=== PATIENT | female | born 1960 | race Caucasian/White ===

== ENCOUNTER 2017-07-04 16:07 | Emergency (ER) | payer BC ==
[~2017-07-04] VITALS: Ht 170.2 cm; Wt 84.4 kg
[~2017-07-04 16:07] MED LIST: PRLSR20 PO
[2017-07-04 16:12] VITALS: TEMP 36.7; Ht 170.2 cm; Wt 84.4 kg
--- NOTE | 2017-07-04 16:21 | EMERGENCY ROOM VISIT NOTE ---
History Report prepared by Portillo: Cindi Sheffield Under the Supervision of: Dr. Dta Hodge M.D. First contact with patient: 16:15 Chief Complaint: URINARY SYMPTOMS Stated Complaint: PELVIC PRESSURE AND PAIN AFTER URINATION Nursing Triage Summary: triage note; pt reports pelvic pain x 1 week. pt reports "i went to the dr yeseterday and thought i had a uti, i have the results on my phone." pt reports "i have lower abd pressure and when i pee i feel like i have to pee a lot." pt reports she was started on antibiotic yesterday. History of Present Illness The patient is a 56 year old female who presents to the Emergency Room with complaints of pelvic pain beginning 1 week ago. The patient reports going to the doctor yesterday and was given 3 days of antibiotics. Her results from her doctor's visit show trace esterase, but are otherwise normal. The patient states that it feels as if "her insides were going to fall out." She also states that she feel pressure in her pelvis and feels as if she needs to urinate a lot. The patient reports having a fever today, but denies back pain, chest pain, shortness of breath, coughing, vaginal bleeding, numbness, weakness, and edema of her legs. She states that her bowels have been normal and denies any recent trauma. 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 The patient reports having a stomach ulcer but no history of an appendectomy. Source of History: patient Onset: 1 week ago Position: other (pelvis) Quality: pressure Associated Symptoms: + fevers, No cough, No chest pain, No SOB, No back pain , No weakness, No numbness Review of Systems See HPI for pertinent positives & negatives. A total of 10 systems reviewed and were otherwise negative. Past Medical & Surgical Medical Problems: (1) Bronchitis (2) Pneumonia (3) Stomach ulcer Surgical Problems: (1) H/O: hysterectomy Old medical records were reviewed. Nurse's notes were reviewed and I agree with. Denies any chronic medical problems Family History Diabetes mellitus FH: diabetes mellitus FH: hypertension FH: kidney disease FHx: cancer Social History Smoking Status: Never Smoker Alcohol Use: none Drug Use: none Marital Status: Housing Status: lives with family Current/Historical Medications Scheduled Sulfa/Trimethoprim (Bactrim Ds 800MG/160MG), 1 TAB PO UD Scheduled PRN Omeprazole (Prilosec), 20 MG PO DAILY PRN Allergies Coded Allergies: No Known Allergies (Unverified , 07/04/17) Physical Exam Vital Signs Date Time Temp Pulse Resp B/P (MAP) Pulse Ox O2 Delivery O2 Flow Rate FiO2 07/04/17 18:40 84 16 138/88 97 07/04/17 16:12 36.7 86 18 138/58 99 Room Air Physical Exam General: Well developed well nourished middle-aged female in no acute distress, breathing comfortably on room air. Normal speech HEENT: Normal cephalic atraumatic. Pupils are equal round and reactive to light. Extraocular movements are intact. Oropharynx is pink with moist mucous membranes. No swelling of the mouth lips or tongue. Neck: Supple with a midline trachea. No meningeal signs or stiffness, no JVD or bruits. No Stridor. Chest: Clear to auscultation bilaterally. No wheezes or rhonchi. No increased work of breathing. Heart: regular rate and rhythm. Abdomen: Soft, nondistended without rebound guarding or rigidity. Mild tenderness to the lower abdomen and suprapubic region. Extremities: No cyanosis clubbing or edema. No calf tenderness or assymetry Spine/Back. Non tender to palpation. No CVA tenderness Skin: Good turgor without rashes. Neurologic exam: Cranial nerves two through 12 are intact. Motor and sensation are intact and symmetrical throughout. Medical Decision & Procedures ER Provider Diagnostic Interpretation: Radiology results as stated below per my review and radiologist interpretation: ABD/PELVIS WITHOUT FOR STONE CLINICAL HISTORY: 56 years-old Female presenting with eval for lower abd pressure. TECHNIQUE: Multidetector CT of the abdomen and pelvis was performed without the use of intravenous contrast. IV contrast: None. A dose lowering technique was used consistent with the principles of ALARA (as low as reasonably achievable). COMPARISON: None. CT DOSE (mGy.cm): The estimated cumulative dose is 1102.13 mGy.cm. FINDINGS: Sales Expert topogram: Unremarkable. Lung bases: Bandlike opacity at the left lung base likely atelectasis or scarring. Normal heart size. No pericardial or pleural effusion. Liver: Normal morphology. Normal density. Biliary: No biliary ductal dilatation allowing for noncontrast technique. Normal gallbladder. Pancreas: Normal. Spleen: Normal. Adrenal glands: Normal. Kidneys and ureters: Normal. No hydronephrosis. Bladder: Incompletely evaluated secondary to underdistention. Pelvic organs: Uterus surgically absent. No adnexal masses. Bowel: Inspissated debris in the small bowel could suggest delayed transit. No bowel obstruction. Peritoneal cavity: No free fluid or intraperitoneal gas. Vasculature: Normal noncontrast appearance. Lymph nodes: No enlarged lymph nodes in the abdomen or pelvis. Abdominal wall: Normal. Musculoskeletal: Degenerative changes of the spine. IMPRESSION: 1. No acute intra-abdominal pathology. 2. Inspissated debris in the small bowel could suggest delayed transit. No bowel obstruction. Electronically signed by: Josemanuel Garcia M.D. 07/04/2017 5:48 PM Dictated Date/Time: 07/04/2017 5:44 PM Laboratory Results 07/04/17 16:45 Red Blood Count 4.40, Mean Corpuscular Volume 89.3, Mean Corpuscular Hemoglobin 30.7, Mean Corpuscular Hemoglobin Concent 34.4, Mean Platelet Volume 9.4, Neutrophils (%) (Auto) 54.1, Lymphocytes (%) (Auto) 34.2, Monocytes (%) (Auto) 9.8, Eosinophils (%) (Auto) 1.7, Basophils (%) (Auto) 0.1, Neutrophils # (Auto) 3.71, Lymphocytes # (Auto) 2.35, Monocytes # (Auto) 0.67, Eosinophils # (Auto) 0.12, Basophils # (Auto) 0.01 07/04/17 16:45 Test 07/04/17 16:15 07/04/17 16:45 Urine Color YELLOW Urine Appearance CLEAR (CLEAR) Urine pH 6.5 (4.5-7.5) Urine Specific [place] 1.026 (1.000-1.030) Urine Protein NEG (NEG) Urine Glucose (UA) NEG (NEG) Urine Ketones NEG (NEG) Urine Occult Blood NEG (NEG) Urine Nitrite NEG (NEG) Urine Bilirubin NEG (NEG) Urine Urobilinogen NEG (NEG) Urine Leukocyte Esterase NEG (NEG) White Blood Count 6.87 K/uL (4.8-10.8) Red Blood Count 4.40 M/uL (4.2-5.4) Hemoglobin 13.5 g/dL (12.0-16.0) Hematocrit 39.3 % (37-47) Mean Corpuscular Volume 89.3 fL (80-100) Mean Corpuscular Hemoglobin 30.7 pg (25-34) Mean Corpuscular Hemoglobin Concent 34.4 g/dl (32-36) Platelet Count 210 K/uL (130-400) Mean Platelet Volume 9.4 fL (7.4-10.4) Neutrophils (%) (Auto) 54.1 % Lymphocytes (%) (Auto) 34.2 % Monocytes (%) (Auto) 9.8 % Eosinophils (%) (Auto) 1.7 % Basophils (%) (Auto) 0.1 % Neutrophils # (Auto) 3.71 K/uL (1.4-6.5) Lymphocytes # (Auto) 2.35 K/uL (1.2-3.4) Monocytes # (Auto) 0.67 K/uL (0.11-0.59) Eosinophils # (Auto) 0.12 K/uL (0-0.5) Basophils # (Auto) 0.01 K/uL (0-0.2) RDW Standard Deviation 42.9 fL (36.4-46.3) RDW Coefficient of Variation 13.1 % (11.5-14.5) Immature Granulocyte % (Auto) 0.1 % Immature Granulocyte # (Auto) 0.01 K/uL (0.00-0.02) Anion Gap 7.0 mmol/L (3-11) Est Creatinine Clear Calc Drug Dose 65.3 ml/min Estimated GFR () 65.9 Estimated GFR (Non- 56.9 BUN/Creatinine Ratio 17.5 (10-20) Calcium Level 8.9 mg/dl (8.5-10.1) Total Bilirubin 0.2 mg/dl (0.2-1) Direct Bilirubin < 0.1 mg/dl (0-0.2) Aspartate Amino Transf (AST/SGOT) 13 U/L (15-37) Alanine Aminotransferase (ALT/SGPT) 24 U/L (12-78) Alkaline Phosphatase 85 U/L (45-117) Total Protein 7.4 gm/dl (6.4-8.2) Albumin 3.9 gm/dl (3.4-5.0) Lipase 204 U/L (73-393) Laboratory studies as stated above per my review. Medications Administered Medications (Trade) Dose Ordered Sig/Lisa Route Start Time Stop Time Status Last Admin Dose Admin Sodium Chloride 1,000 ml @ 999 mls/hr Q1H1M STAT IV 07/04/17 16:32 07/04/17 17:32 DC 07/04/17 16:54 999 MLS/HR Sodium Chloride 1,000 ml @ 150 mls/hr Q6H40M ONCE IV 07/04/17 16:32 07/04/17 21:03 DC 07/04/17 17:48 150 MLS/HR ED Course 1617: Past medical records reviewed. The patient was evaluated in room A12, and a complete history and physical examination were performed. 1632: Ordered Sodium Chloride 1,000 ml @ 150 mls/hr IV, Sodium Chloride 1,000 ml @ 999 mls/hr IV. 1815: Upon reevaluation, the patient is resting comfortably. I discussed the results and treatment plan with her. She verbalized agreement of the treatment plan. The patient was discharged home. Medical Decision Differentials include, but are not limited to; UTI, kidney stones, appendicitis , and pelvic disease. This patient comes in as described above. She's had some pelvic fullness and some mild urinary symptoms for a couple days. She has no significant back pain. She has no numbness or weakness or change in bowel or bladder function to or anything to suggest a neurologic or cauda equina-type picture. IV access established and urinalysis was obtained does not suggest a UTI however she's had a couple doses of Bactrim. She has no white count or fever to suggest infection. She has no acute electrode or metabolic abnormality. She had a CAT scan of her abdomen and pelvis shows no obstructive uropathy or another acute intra-abdominal or pelvic processes. The patient has remained stable does feel up to going home. She will use ibuprofen for pain. I will have her continue the antibiotics for another 7 days, she had been only given 3 days. It be that this is bladder spasm or partially treated UTI. At this point there is no kidney stone or other pathology seen. I recommend she follow up with her regular doctor in the next couple days for recheck or return to ER if increasing pain, worsening symptoms, fever or chills, any new problems or concerns. She was happy with plan and discharged home Medication Reconcilliation Current Medication List: was personally reviewed by me Blood Pressure Screening Patient's blood pressure: Normal blood pressure Impression Primary Impression: Suprapubic pain Additional Impression: Urinary tract infection Scribe Attestation The scribe's documentation has been prepared under my direction and personally reviewed by me in its entirety. I confirm that the note above accurately reflects all work, treatment, procedures, and medical decision making performed by me. Departure Information Dispostion Home / Self-Care Referrals Yuly Rm D.O. (PCP) Forms HOME CARE DOCUMENTATION FORM, IMPORTANT VISIT INFORMATION Patient Instructions My [facility] [place] Additional Instructions Rest. Drink plenty of fluids. Continue Bactrim double strength twice a day. Return if: increasing pain, worsening of symptoms, fever or chills, any new problems or concerns Follow-up with your doctor Thursday for recheck Problem Qualifiers
[2017-07-04] MEDS ORDERED: SODIUM CHLORIDE 0.9% 1000ML 1,000 ML IV STA (16:32)
[2017-07-04] MEDS ORDERED: SODIUM CHLORIDE 0.9% 1000ML 1,000 ML IV ONE (16:32)
[2017-07-04 16:33] LABS: URINE APPEARANCE CLEAR (CLEAR); URINE BILIRUBIN NEG (NEG); URINE COLOR YELLOW; URINE NITRITE NEG (NEG); URINE PH 6.5 (4.5-7.5); URINE SPECIFIC GRAVITY 1.026 (1.000-1.030); UROBILINOGEN NEG (NEG); ZZUR CULT IF INDIC CLEAN CATCH NO
[2017-07-04 16:35] LABS: MANUAL MICROSCOPIC REQUIRED? NO; REVIEW REQ? NO
[2017-07-04] MEDS ORDERED: SULF800T23 PO (16:37)
[2017-07-04 17:05] LABS: BASO % 0.1 %; BASO ABS # 0.01 K/uL (0-0.2); COMPLETE YES; EOS % 1.7 %; HEMATOCRIT 39.3 % (37-47); IG% 0.1 %; LYMPH % 34.2 %; LYMPH ABS # 2.35 K/uL (1.2-3.4); MEAN CELL VOLUME 89.3 fL (80-100); MEAN CORPUSCULAR HEMOGLOBIN 30.7 pg (25-34); MEAN CORPUSCULAR HGB CONC 34.4 g/dl (32-36); MEAN PLATELET VOLUME 9.4 fL (7.4-10.4); MONO % 9.8 %; NEUT % 54.1 %; PLATELET COUNT 210 K/uL (130-400); WHITE BLOOD COUNT 6.87 K/uL (4.8-10.8)
[2017-07-04 17:24] LABS: BLOOD UREA NITROGEN 19 mg/dl (7-18); BUN/CREATININE RATIO 17.5 (10-20); CALCIUM 8.9 mg/dl (8.5-10.1); CARBON DIOXIDE 26 mmol/L (21-32); CHLORIDE 108 mmol/L (98-107); GLUCOSE 87 mg/dl (70-99); POTASSIUM 3.8 mmol/L (3.5-5.1); SODIUM 141 mmol/L (136-145)
[2017-07-04 17:28] LABS: ALKALINE PHOSPHATASE 85 U/L (45-117); ALT/SGPT 24 U/L (12-78); AST/SGOT 13 U/L (15-37)
--- NOTE | 2017-07-04 17:49 | DIAGNOSTIC IMAGING REPORT ---
ABD/PELVIS WITHOUT FOR STONE CLINICAL HISTORY: 56 years-old Female presenting with eval for lower abd pressure. TECHNIQUE: Multidetector CT of the abdomen and pelvis was performed without the use of intravenous contrast. IV contrast: None. A dose lowering technique was used consistent with the principles of ALARA (as low as reasonably achievable). COMPARISON: None. CT DOSE (mGy.cm): The estimated cumulative dose is 1102.13 mGy.cm. FINDINGS: Associate Professor Of Automation topogram: Unremarkable. Lung bases: Bandlike opacity at the left lung base likely atelectasis or scarring. Normal heart size. No pericardial or pleural effusion. Liver: Normal morphology. Normal density. Biliary: No biliary ductal dilatation allowing for noncontrast technique. Normal gallbladder. Pancreas: Normal. Spleen: Normal. Adrenal glands: Normal. Kidneys and ureters: Normal. No hydronephrosis. Bladder: Incompletely evaluated secondary to underdistention. Pelvic organs: Uterus surgically absent. No adnexal masses. Bowel: Inspissated debris in the small bowel could suggest delayed transit. No bowel obstruction. Peritoneal cavity: No free fluid or intraperitoneal gas. Vasculature: Normal noncontrast appearance. Lymph nodes: No enlarged lymph nodes in the abdomen or pelvis. Abdominal wall: Normal. Musculoskeletal: Degenerative changes of the spine. IMPRESSION: 1. No acute intra-abdominal pathology. 2. Inspissated debris in the small bowel could suggest delayed transit. No bowel obstruction. Electronically signed by: Josemanuel Garcia M.D. 07/04/2017 5:48 PM Dictated Date/Time: 07/04/2017 5:44 PM
[2017-07-04 18:40] VITALS: BP 138/88; PULSE 84; O2SAT 97
== END 2017-07-04 18:40 | disposition home or self-care (01) ==
LOC: C.EDB 16:09 → C.EDA 18:40
DX: R10.2 Pelvic and perineal pain (principal); N39.0 Urinary tract infection, site not specified; Z90.710 Acquired absence of both cervix and uterus; Z83.3 Family history of diabetes mellitus; Z82.49 Family history of ischemic heart disease and other diseases of the circulatory system

== ENCOUNTER 2020-11-10 20:05 | Inpatient (IN) ==
[2020-11-10 20:27] LABS: Basophils # (auto) 0.02 K/uL (0-0.2); Basophils % (auto) 0.3 %; Eosinophils % (auto) 1.3 %; Hematocrit (blood only) 39.3 % (37-47); Hemoglobin 13.4 g/dL (12.0-16.0); Immature Granulocytes # (auto) 0.01 K/uL (0.00-0.02); Immature Granulocytes % (auto) 0.1 %; Lymphocytes # (auto) 2.31 K/uL (1.2-3.4); Lymphocytes % (auto) 30.2 %; Mean Corpuscular Hemoglobin 30.8 pg (25-34); Mean Corpuscular Hgb Conc 34.1 g/dL (32-36); Mean Corpuscular Volume 90.3 fL (80-100); Mean Platelet Volume 9.6 fL (7.4-10.4); Monocytes # (auto) 0.53 K/uL (0.11-0.59); Monocytes % (auto) 6.9 %; Neutrophils # (auto) 4.68 K/uL (1.4-6.5); Neutrophils % (auto) 61.2 %; Platelet Count 204 K/uL (130-400); RDW Standard Deviation 43.1 fL (36.4-46.3); Red Blood Count 4.35 M/uL (4.2-5.4); White Blood Count 7.65 K/uL (4.8-10.8)
[2020-11-10] MEDS ORDERED: SODIUM CHLORIDE 0.9% 1000ML 1,000 ML IV ONE (20:30)
[2020-11-10] MEDS ORDERED: NITROGLYCERIN SL 0.4 MG/TAB TAB SL STA (20:30)
[2020-11-10] MEDS ORDERED: LORazepam 0.5 MG/1 ML VIAL IV STA (20:30)
[2020-11-10 20:37] LABS: Partial Thromboplastin Ratio 0.9; Partial Thromboplastin Time 25.4 Seconds (21.0-31.0); Prothrombin Time 10.2 Seconds (9.0-12.0)
[2020-11-10 20:42] LABS: BUN Creatinine Ratio 16.5 (10-20); Blood Urea Nitrogen 18 mg/dl (7-18); Calcium 9.1 mg/dl (8.5-10.1); Carbon Dioxide 25 mmol/L (21-32); Chloride 109 mmol/L (98-107); Creatinine Clr Calc Pharmacy 64.4 ml/min; Est GFR (African American) 63.4; Est GFR (Non-African American) 54.7; Glucose 116 mg/dl (70-99); Lipase 161 U/L (73-393); Potassium 3.9 mmol/L (3.5-5.1); Sodium 140 mmol/L (136-145)
[2020-11-10 20:46] LABS: Troponin I < 0.015 ng/ml (0-0.045)
--- NOTE | 2020-11-10 21:17 | XRay Report ---
TWO VIEW CHEST CLINICAL HISTORY: Atypical chest pain.. FINDINGS: PA and lateral chest radiographs are obtained. No prior studies are available for compariso n at the time of dictation. The cardiomediastinal silhouette is unremarkable. There is mild bibasila r atelectasis. The lungs and pleural spaces are otherwise clear. There is no pneumothorax. The skelet al structures are osteopenic. The bony thorax appears intact. IMPRESSION: No active disease in the chest. ACT 112: Negative or not required by law. Electronically signed by: Tommy Ma M.D. 11/10/2020 9:15 PM
--- NOTE | 2020-11-10 21:54 | History & Physical Report ---
Date of Service November 10, 2020 Assessment & Plan (1) Chest pain: ? Secondary to elevated BP Musculoskeletal component with chest wall tenderness on examination Rule out ACS given relief with nitroglycerin and patient risk factors. hyperlipidemia on statin Rx GERD, stable on home PPI Hyperglycemia rule out DM past tobacco abuse OBS PCU Initiate lisinopril if BP persistently elevated Aspirin for CAD prevention until ACS ruled out Trend cardiac markers TTE, Cardiology consult RE chest pain Check hemoglobin A1c DVT prophylaxis. Lovenox subcu Full code Text document was generated using [employer] voice recognition software. It may contain grammatical or spelling errors. Kindly contact undersigned for clarification of any documentation item in question. History of Present Illness Chief Complaint: Chest pain Primary Care Provider: Yuly Rm DO History obtained from patient and records. Medical history significant for hyperlipidemia, GERD. 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 No cough symptoms. Nonpleuritic. No prior episodes. No unusual stress at home or exertion. SBP noted to be 170s which according to patient is unusual for her. Chest discomfort relieved by aspirin and nitroglycerin administration by EMS. Achy headache symptoms post nitro administration. Patient currently comfortable at the ER. Medical History as above Surgical History : Partial hysterectomy, shoulder surgery Family History : Heart disease Personal/Social history : Non-smoker, occasional Et[employer] intake, [employer] Allergies Allergy/AdvReac Type Severity Reaction Status Date / Time No Known Allergies Allergy Unverified 11/10/20 20:22 Home Medications Medication Instructions Recorded Confirmed Type aspirin [Aspir-81] 162 mg PO .TODAY 11/10/20 11/10/20 History aspirin [Aspir-Low] 324 mg PO .TODAY 11/10/20 11/10/20 History atorvastatin [Lipitor] 20 mg PO DAILY 11/10/20 11/10/20 History omeprazole 40 mg PO DAILY 11/10/20 11/10/20 History Past Med/Surg History Medical History (Updated 11/11/20 @ 01:35 by Malik Wade) HLD (hyperlipidemia) Stomach ulcer Surgical History History of hysterectomy Family History (Updated 11/11/20 @ 01:32 by Malik Wade) Father Myocardial infarction Other Heart disease Social History Smoking Status: Never smoker Hx Alcohol Use: No Hx Substance Use: No Preferred Language: Iranian Change Consultant Required: No Beliefs That Will Affect Care: None Current Living Situation: Family Feels Safe at Home: Yes Assistive Devices: None Review of Systems Review of Systems: As per HPI, all 10 systems reviewed, all other ROS negative Physical Exam Physical Exam: GENERAL: Comfortable, pleasant, obese, slightly anxious, no respiratory distress SKIN: Normal color, warm HEENT: [place] palpebral conjunctivae, no ptosis, dry buccal mucosa NECK : Supple, short neck, no tenderness CHEST : CTA, anterior chest wall tenderness HEART : RRR, no obvious murmurs ABDOMEN: Some distention, nontender EXTREMITIES : No LE swelling/tenderness, no other conspicuous deformities noted NEUROLOGIC : Coherent, no facial asymmetry, no other gross focality Results & Data Results & Data ([facility]) Vital Signs (Past 12 Hours) Vital Signs Temp Pulse Resp BP Pulse Ox 11/10/20 21:30 89 22 125/97 97 11/10/20 21:00 92 H 17 150/85 H 94 11/10/20 20:58 90 17 158/86 H 95 11/10/20 20:30 94 H 15 164/125 H 96 11/10/20 20:15 97 11/10/20 20:09 36.6 C 100 H 18 182/103 H 97 Laboratory Results Laboratory Results WBC 7.65 K/uL (4.8-10.8) 11/10/20 20:13 RBC 4.35 M/uL (4.2-5.4) 11/10/20 20:13 Hgb 13.4 g/dL (12.0-16.0) 11/10/20 20:13 Hct 39.3 % (37-47) 11/10/20 20:13 MCV 90.3 fL (80-100) 11/10/20 20:13 MCH 30.8 pg (25-34) 11/10/20 20:13 MCHC 34.1 g/dL (32-36) 11/10/20 20:13 RDW Std Deviation 43.1 fL (36.4-46.3) 11/10/20 20:13 RDW Coeff of [place] 13.0 % (11.5-14.5) 11/10/20 20:13 Plt Count 204 K/uL (130-400) 11/10/20 20:13 MPV 9.6 fL (7.4-10.4) 11/10/20 20:13 Immature Gran % (Auto) 0.1 % 11/10/20 20:13 Neut % (Auto) 61.2 % 11/10/20 20:13 Lymph % (Auto) 30.2 % 11/10/20 20:13 [place] % (Auto) 6.9 % 11/10/20 20:13 Eos % (Auto) 1.3 % 11/10/20 20:13 Baso % (Auto) 0.3 % 11/10/20 20:13 Neut # (Auto) 4.68 K/uL (1.4-6.5) 11/10/20 20:13 Lymph # (Auto) 2.31 K/uL (1.2-3.4) 11/10/20 20:13 [place] # (Auto) 0.53 K/uL (0.11-0.59) 11/10/20 20:13 Eos # (Auto) 0.10 K/uL (0-0.5) 11/10/20 20:13 Baso # (Auto) 0.02 K/uL (0-0.2) 11/10/20 20:13 Immature Gran # (Auto) 0.01 K/uL (0.00-0.02) 11/10/20 20:13 PT 10.2 Seconds (9.0-12.0) 11/10/20 20:13 INR 1.0 (0.9-1.1) 11/10/20 20:13 APTT 25.4 Seconds (21.0-31.0) 11/10/20 20:13 PTT Ratio 0.9 11/10/20 20:13 Sodium 140 mmol/L (136-145) 11/10/20 20:13 Potassium 3.9 mmol/L (3.5-5.1) 11/10/20 20:13 Chloride 109 mmol/L (98-107) H 11/10/20 20:13 Carbon Dioxide 25 mmol/L (21-32) 11/10/20 20:13 Anion Gap 7.0 (3-11) 11/10/20 20:13 BUN 18 mg/dl (7-18) 11/10/20 20:13 Creatinine 1.11 mg/dl (0.6-1.2) 11/10/20 20:13 Est Cr Clr Drug Dosing 64.4 ml/min 11/10/20 20:13 Est GFR ( Amer) 63.4 11/10/20 20:13 Est GFR (Non-Af Amer) 54.7 11/10/20 20:13 BUN/Creatinine Ratio 16.5 (10-20) 11/10/20 20:13 Glucose 116 mg/dl (70-99) H 11/10/20 20:13 Calcium 9.1 mg/dl (8.5-10.1) 11/10/20 20:13 Troponin I < 0.015 ng/ml (0-0.045) 11/10/20 20:13 Lipase 161 U/L (73-393) 11/10/20 20:13 SARS-CoV-2 Ag (Rapid) Negative (Negative) 11/10/20 Unknown Diagnostic Findings Chest x-ray : No active disease in the chest. EKG as per my interpretation : 95, NSR, normal axis, T wave abnormalities anteroseptal leads (1) Chest pain Chest pain type: unspecified Qualified Code(s): R07.9 - Chest pain, unspecified
[2020-11-10] MEDS ORDERED: PROMETHAZINE HCL 12.5 MG in SODIUM CHLORIDE 0.9% 50 ML IV PRN (22:57)
[2020-11-10] MEDS ORDERED: LORazepam 0.5 MG/1 ML VIAL IV PRN (22:57)
[2020-11-10] MEDS ORDERED: NITROGLYCERIN SL 0.4 MG/TAB TAB SL PRN (22:57)
[2020-11-10] MEDS ORDERED: traMADol HCL 50 MG TABLET PO PRN (22:57)
[2020-11-10] MEDS ORDERED: MoRPHine SULFATE 4 MG/ML 1 ML CARP\\VIAL IV PRN (22:57)
[2020-11-10] MEDS ORDERED: LACTATED RINGER'S 1,000 ML IV ONE (22:57)
[2020-11-11] MEDS ORDERED: lisinopril 2.5 MG TAB PO ONE (00:07)
--- NOTE | 2020-11-11 01:35 | Emergency Department Note ---
History of Present Illness General Chief Complaint: Chest Pain Stated Complaint: CHEST PRESSURE Time Seen by Provider: 11/10/20 20:12 History of Present Illness Provider Complaint: chest pain Onset (ago): day(s) 1 Duration: intermittent Pain Location: substernal Pain Radiation: none Severity: moderate Maximum Pain Intensity: 4 Current Pain Intensity: 4 Quality: + other (Pressure) Relieved By: + nitroglycerin (2 sublingual nitroglycerin given by EMS) Exacerbated By: + nothing Context: no recent illness, no recent surgery, no recent immobilization, no recent travel, no trauma/injury, no new medications and no history of DVT/PE Associated symptoms: + diaphoresis and + dyspnea; no nausea, no vomiting, no syncope, no palpitations, no fever, no cough and no leg swelling Treatments prior to arrival: aspirin and nitroglycerin Related Data On Oral Contraceptives: No Home Medications Medication Instructions Recorded Confirmed Type aspirin [Aspir-81] 162 mg PO .TODAY 11/10/20 11/10/20 History aspirin [Aspir-Low] 324 mg PO .TODAY 11/10/20 11/10/20 History atorvastatin [Lipitor] 20 mg PO DAILY 11/10/20 11/10/20 History omeprazole 40 mg PO DAILY 11/10/20 11/10/20 History Allergies Allergy/AdvReac Type Severity Reaction Status Date / Time No Known Allergies Allergy Unverified 11/10/20 20:22 Past Med/Surg History Medical History (Updated 11/11/20 @ 01:35 by Malik Wade) HLD (hyperlipidemia) Stomach ulcer Surgical History History of hysterectomy Family History (Updated 11/11/20 @ 01:32 by Malik Wade) Father Myocardial infarction Other Heart disease Social History Smoking Status: Never smoker Hx Alcohol Use: No Hx Substance Use: No Preferred Language: Armenian Permit Technician Required: No Beliefs That Will Affect Care: None Current Living Situation: Family Feels Safe at Home: Yes Assistive Devices: None Review of Systems A total of 10 systems reviewed and were otherwise negative Physical Exam Vital Signs Vital Signs - 24 hr 11/10/20 20:09 11/10/20 20:15 11/10/20 20:30 Temperature 36.6 C Temperature Source Oral Pulse Rate 100 H 94 H Pulse Rate from SpO2 Sensor 93 H Pulse Rhythm Regular Pulse Strength Normal Respiratory Rate 18 15 Respiratory Effort / Characteristics Non-Labored Spontaneous Respiratory Depth Normal Respiratory Pattern Regular Blood Pressure 182/103 H 164/125 H Blood Pressure Mean 129 138 Blood Pressure Position Lying Pulse Oximetry 97 97 96 Oxygen Delivery Method Room Air Room Air Room Air Sepsis Recent Fever Within 48 Hours No Sepsis New/Unexplained Change in Mental Status No Sepsis Action Taken by Nursing No Action Required 11/10/20 20:58 11/10/20 21:00 11/10/20 21:30 Temperature Temperature Source Pulse Rate 90 92 H 89 Pulse Rate from SpO2 Sensor 93 H 91 H 88 Pulse Rhythm Pulse Strength Respiratory Rate 17 17 22 Respiratory Effort / Characteristics Respiratory Depth Respiratory Pattern Blood Pressure 158/86 H 150/85 H 125/97 Blood Pressure Mean 103 97 105 Blood Pressure Position Pulse Oximetry 95 94 97 Oxygen Delivery Method Room Air Sepsis Recent Fever Within 48 Hours Sepsis New/Unexplained Change in Mental Status Sepsis Action Taken by Nursing Physical Exam GENERAL: She is oriented to person, place, and time. She appears well-developed and well-nourished. She does not appear distressed. HENT: Exam performed. -Head: Normocephalic and atraumatic. -Right Ear: External ear normal. No mastoid tenderness. -Left Ear: External ear normal. No mastoid tenderness. -Mouth/Throat: The oropharynx is clear and moist. No trismus in the jaw. No dental abscesses or uvula swelling. No oropharyngeal exudate or tonsillar abscesses. EYES: Conjunctivae and EOM are normal. Pupils are equal, round, and reactive to light. Right eye exhibits no discharge. Left eye exhibits no discharge. No scleral icterus. NECK: Normal range of motion. Neck supple. No JVD present. No spinous process tenderness present. No carotid bruit present. No rigidity. No tracheal deviation and normal range of motion present. No Brudzinski's sign and no Kernig's sign noted. CV: Normal rate, regular rhythm, normal heart sounds and intact distal pulses. There is no peripheral edema. Palpable radial pulses bue. PULM/CHEST: Effort normal and breath sounds normal. No respiratory distress. No stridor. She has no wheezes. She has no rales. -Chest Wall: She exhibits no tenderness. ABD: The abdomen is soft. Bowel sounds are normal. She has no distension. No mass is present. There is no tenderness. There is no rebound, no guarding, no Lawrence's sign and no tenderness at McBurney's point. Rovsig negative MUSC/SKEL: Normal range of motion. There is no peripheral edema, tenderness or deformity. LYMPH: No cervical adenopathy. NEURO: She is alert and oriented to person, place, and time. She has normal strength. No cranial nerve deficit or sensory deficit. Coordination and gait normal. GCS eye subscore is 4. GCS verbal subscore is 5. GCS motor subscore is 6. Cerebellar tests wnl. SKIN: Skin is warm and dry. She is not diaphoretic. PSYCH: She has a normal mood and affect. Behavior is normal. Judgment and thought content normal. Course Course 2012: The patient was evaluated in room C9. A complete history and physical exam was performed. Cardiac monitoring: An order was placed for continuous cardiac monitoring. The monitor shows a rate of 94 with sinus rhythm 2115: Vital signs stable. Labs and imaging within normal limits. Given the patient's age, family history of her father dying of an DC in his 50s, hyperlipidemia, and relief of symptoms with nitroglycerin, the patient will be admitted to the [facility] system for chest pain rule out ACS. Dr. Berkowitz notified. Administered Medications Lactated Ringer's (Lr) 1,000 mls @ 50 mls/hr IV .Q20H ONE Stop: 11/11/20 18:56 Last Admin: 11/10/20 23:41 Dose: 50 mls/hr Documented by: [id number] Discontinued Medications Lorazepam (Ativan) 0.5 mg in 1 mls @ 1 mls/min IV NOW STA Stop: 11/10/20 20:31 Last Admin: 11/10/20 20:48 Dose: 1 mls/min Documented by: [id number] Sodium Chloride (Nss 1000ml) 1,000 mls @ 999 mls/hr IV .Q1H1M ONE Stop: 11/10/20 21:30 Last Infusion: 11/10/20 21:50 Dose: 0 mls/hr Documented by: [id number] Admin: 11/10/20 20:48 Dose: 999 mls/hr Documented by: [id number] Lisinopril (Lisinopril 2.5 Mg Tab) 2.5 mg PO ONE ONE Stop: 11/11/20 00:08 Last Admin: 11/11/20 00:20 Dose: Not Given Documented by: [id number] Nitroglycerin (Nitroglycerin Sl 0.4 Mg/Tab Tab) 0.4 mg SL NOW STA Stop: 11/10/20 20:31 Last Admin: 11/10/20 20:48 Dose: 0.4 mg Documented by: [id number] Medical Decision Making Laboratory Data Result diagrams: 11/10/20 20:13 11/10/20 20:13 Labs: Lab Results 11/10/20 11/10/20 11/10/20 Range/Units 20:13 20:13 20:13 WBC 7.65 (4.8-10.8) K/uL RBC 4.35 (4.2-5.4) M/uL Hgb 13.4 (12.0-16.0) g/dL Hct 39.3 (37-47) % MCV 90.3 (80-100) fL MCH 30.8 (25-34) pg MCHC 34.1 (32-36) g/dL RDW Std Deviation 43.1 (36.4-46.3) fL RDW Coeff of [place] 13.0 (11.5-14.5) % Plt Count 204 (130-400) K/uL MPV 9.6 (7.4-10.4) fL Immature Gran % (Auto) 0.1 % Neut % (Auto) 61.2 % Lymph % (Auto) 30.2 % [place] % (Auto) 6.9 % Eos % (Auto) 1.3 % Baso % (Auto) 0.3 % Neut # (Auto) 4.68 (1.4-6.5) K/uL Lymph # (Auto) 2.31 (1.2-3.4) K/uL [place] # (Auto) 0.53 (0.11-0.59) K/uL Eos # (Auto) 0.10 (0-0.5) K/uL Baso # (Auto) 0.02 (0-0.2) K/uL Immature Gran # (Auto) 0.01 (0.00-0.02) K/uL PT 10.2 (9.0-12.0) Seconds INR 1.0 (0.9-1.1) APTT 25.4 (21.0-31.0) Seconds PTT Ratio 0.9 Sodium 140 (136-145) mmol/L Potassium 3.9 (3.5-5.1) mmol/L Chloride 109 H (98-107) mmol/L Carbon Dioxide 25 (21-32) mmol/L Anion Gap 7.0 (3-11) BUN 18 (7-18) mg/dl Creatinine 1.11 (0.6-1.2) mg/dl Est Cr Clr Drug Dosing 64.4 ml/min Est GFR ( Amer) 63.4 Est GFR (Non-Af Amer) 54.7 BUN/Creatinine Ratio 16.5 (10-20) Glucose 116 H (70-99) mg/dl Calcium 9.1 (8.5-10.1) mg/dl Troponin I < 0.015 (0-0.045) ng/ml Lipase 161 (73-393) U/L 11/10/20 Range/Units 21:40 WBC (4.8-10.8) K/uL RBC (4.2-5.4) M/uL Hgb (12.0-16.0) g/dL Hct (37-47) % MCV (80-100) fL MCH (25-34) pg MCHC (32-36) g/dL RDW Std Deviation (36.4-46.3) fL RDW Coeff of [place] (11.5-14.5) % Plt Count (130-400) K/uL MPV (7.4-10.4) fL Immature Gran % (Auto) % Neut % (Auto) % Lymph % (Auto) % [place] % (Auto) % Eos % (Auto) % Baso % (Auto) % Neut # (Auto) (1.4-6.5) K/uL Lymph # (Auto) (1.2-3.4) K/uL [place] # (Auto) (0.11-0.59) K/uL Eos # (Auto) (0-0.5) K/uL Baso # (Auto) (0-0.2) K/uL Immature Gran # (Auto) (0.00-0.02) K/uL PT (9.0-12.0) Seconds INR (0.9-1.1) APTT (21.0-31.0) Seconds PTT Ratio Sodium (136-145) mmol/L Potassium (3.5-5.1) mmol/L Chloride (98-107) mmol/L Carbon Dioxide (21-32) mmol/L Anion Gap (3-11) BUN (7-18) mg/dl Creatinine (0.6-1.2) mg/dl Est Cr Clr Drug Dosing ml/min Est GFR ( Amer) Est GFR (Non-Af Amer) BUN/Creatinine Ratio (10-20) Glucose (70-99) mg/dl Calcium (8.5-10.1) mg/dl Troponin I < 0.015 (0-0.045) ng/ml Lipase (73-393) U/L Imaging Data Chest x-ray: Radiologist's impression: TWO VIEW CHEST CLINICAL HISTORY: Atypical chest pain.. FINDINGS: PA and lateral chest radiographs are obtained. No prior studies are available for comparison at the time of dictation. The cardiomediastinal silhouette is unremarkable. There is mild bibasilar atelectasis. The lungs and pleural spaces are otherwise clear. There is no pneumothorax. The skeletal structures are osteopenic. The bony thorax appears intact. IMPRESSION: No active disease in the chest. ACT 112: Negative or not required by law. Electronically signed by: Tommy Ma M.D. 11/10/2020 9:15 PM Dictated: 11/10/202113Transcribed: 11/10/202113 ECG Data Indication: chest pain Rate (beats per minute): 94 Rhythm: normal sinus Findings: no ST depression, no ST elevation and no prolonged QT Additional Comments: NE QRS and QTc intervals within normal limits MDM Narrative 2012: The patient was evaluated in room C9. A complete history and physical exam was performed. Cardiac monitoring: An order was placed for continuous cardiac monitoring. The monitor shows a rate of 94 with sinus rhythm 2114: Vital signs stable. Labs and imaging within normal limits. Given the patient's age, family history of her father dying of an DC in his 50s, hyperlipidemia, and relief of symptoms with nitroglycerin, the patient will be admitted to the [facility] system for chest pain rule out ACS. Dr. Berkowitz notified. Impression & Plan Chest pain Discharge Plan Visit Data Chief Complaint: Chest Pain Stated Complaint: CHEST PRESSURE ED Provider: Malik Wade Discharge Problem: Chest pain Patient Disposition: Admitted As Inpatient Discharge Instructions Interventions: ED Discharge Assessment Last Done: 11/10/20 22:35 Discharge Problem: Chest pain Qualifiers: Chest pain type: unspecified Qualified Code(s): R07.9 - Chest pain, unspecified
[2020-11-11 07:07] LABS: Basophils # (auto) 0.02 K/uL (0-0.2); Basophils % (auto) 0.3 %; Eosinophils # (auto) 0.11 K/uL (0-0.5); Eosinophils % (auto) 1.7 %; Hematocrit (blood only) 38.1 % (37-47); Hemoglobin 12.7 g/dL (12.0-16.0); Lymphocytes # (auto) 2.18 K/uL (1.2-3.4); Lymphocytes % (auto) 32.7 %; Mean Corpuscular Hgb Conc 33.3 g/dL (32-36); Mean Corpuscular Volume 90.1 fL (80-100); Mean Platelet Volume 9.5 fL (7.4-10.4); Monocytes # (auto) 0.54 K/uL (0.11-0.59); Monocytes % (auto) 8.1 %; Neutrophils # (auto) 3.81 K/uL (1.4-6.5); Neutrophils % (auto) 57.2 %; Platelet Count 191 K/uL (130-400); RDW Coefficient of Variation 13.2 % (11.5-14.5); Red Blood Count 4.23 M/uL (4.2-5.4); White Blood Count 6.66 K/uL (4.8-10.8)
[2020-11-11 07:14] LABS: Partial Thromboplastin Ratio 0.9; Partial Thromboplastin Time 25.8 Seconds (21.0-31.0)
[2020-11-11 07:33] LABS: BUN Creatinine Ratio 18.1 (10-20); Blood Urea Nitrogen 12 mg/dl (7-18); Calcium 8.8 mg/dl (8.5-10.1); Carbon Dioxide 25 mmol/L (21-32); Chloride 109 mmol/L (98-107); Cholesterol 303 mg/dl (0-200); Est GFR (African American) 111.8; Est GFR (Non-African American) 96.4; Glucose 94 mg/dl (70-99); Potassium 3.8 mmol/L (3.5-5.1); Sodium 141 mmol/L (136-145); Triglycerides 217 mg/dl (0-150); VLDL Cholesterol 43 mg/dl
[2020-11-11 07:38] LABS: Chol HDL Ratio 6; HDL Cholesterol 55 mg/dl; LDL Cholesterol Calculated 205 mg/dl; Troponin I < 0.015 ng/ml (0-0.045)
[2020-11-11] MEDS: ATORVASTATIN 20 MG TAB PO SCH (07:49)
[2020-11-11] MEDS: PANTOprazole 40 MG TAB PO SCH (07:49)
[2020-11-11] MEDS: ASPIRIN 81 MG ECTAB PO SCH (07:49)
[2020-11-11] MEDS: ACETAMINOPHEN 325 MG TAB PO PRN ×2 (07:51→17:31)
[2020-11-11] MEDS ORDERED: ENOXAPARIN INJ 40 MG/0.4 ML SYR SQ SCH (09:00)
--- NOTE | 2020-11-11 11:06 | Cardiology Consultation ---
Date of Consultation November 11, 2020 Assessment & Plan (1) Chest pain: Patient is a 60-year-old female with cardiovascular risk factors of marked hyperlipidemia and family history admitted after episode of chest pain and diaphoresis at rest. Patient had recurrence of diaphoresis this morning. EKG reveals T wave inversions anterior precordial leads. No elevation in troponin or wall motion or normality's on echocardiogram. Concerning symptom pattern at rest. Discussed options and management patient. We will keep n.p.o. after midnight in anticipation of possible cardiac catheterization in a.m. Begin beta-amy therapy today. (2) HLD (hyperlipidemia): Continue atorvastatin though will likely need intensification of treatment. TSH to be checked given persistent LDL elevation. Add metabolic panel and urinalysis assessing for proteinuria/hypoalbuminemia History of Present Illness Reason for Consultation: Chest pain Requesting Physician: Dr. Awad Attending Physician: Son Awad MD History of Present Illness Patient is a 60-year-old female without prior history of cardiac disease but underlying history of 1. Hyperlipidemia with LDL greater than 200, intermittent lipid-lowering therapy usage 2. Family history of premature coronary disease, father in early 50s 3. Prior peptic ulcer disease Patient presents this admission noting no prior history of angina, myocardial infarction, congestive heart failure rheumatic fever scarlet fever. Patient yesterday while standing quietly at work developed sudden onset of chest pressure pain rating to the shoulders with associated diaphoresis. Patient noted mild malaise earlier in the same day but no other acute issues. No prior history of similar complaints. Denies fevers chills unexplained infections. Notes no tachypalpitations syncope or near syncope. Notes no orthopnea PND or peripheral edema. No bleeding difficulties. No acute weight loss or gain. Has chronic sleep disruption. Currently no headaches or visual changes. No prior history of hypertension but blood pressure is elevated on presentation. No history of diabetes renal or hepatic disease. Does miss some doses of lipid-lowering therapy with studies elevated this morning During examination this morning mild episode of diaphoresis once again Allergies Allergy/AdvReac Type Severity Reaction Status Date / Time No Known Allergies Allergy Unverified 11/10/20 20:22 Home Medications Medication Instructions Recorded Confirmed Type aspirin [Aspir-81] 162 mg PO .TODAY 11/10/20 11/10/20 History aspirin [Aspir-Low] 324 mg PO .TODAY 11/10/20 11/10/20 History atorvastatin [Lipitor] 20 mg PO DAILY 11/10/20 11/10/20 History omeprazole 40 mg PO DAILY 11/10/20 11/10/20 History Patient History Medical History HLD (hyperlipidemia) Stomach ulcer Surgical History History of hysterectomy Family History Father Myocardial infarction Other Heart disease Social History Smoking Status: Never smoker Hx Alcohol Use: No Hx Substance Use: No Preferred Language: Hebrew Clinical Research Management Associate Required: No Beliefs That Will Affect Care: None Current Living Situation: Family Feels Safe at Home: Yes Assistive Devices: None Review of Systems Review of Systems: All systems reviewed & are unremarkable except as noted in HPI & below Physical Exam Constitutional: WD/WN, vitals as above Eyes: PERRL, conjunctivae normal, anicteric sclerae ENMT: external ear and nose normal, oropharynx normal Neck: trachea midline, no thyromegaly Respiratory: normal respiratory effort, lungs clear to auscultation Cardiovascular: Rate/Rhythm: regular rate and regular rhythm Heart Sounds: normal S1 and normal S2; no gallop and no murmur Palpation: normal PMI Vessels: normal carotid upstroke and radial pulses present; no JVD and no carotid bruit Extremities: no edema Gastrointestinal (Abdomen): normal bowel sounds, soft, nontender, no hepatosplenomegaly Musculoskeletal: no cyanosis or clubbing, extremities motor strength 5/5 Skin: no rashes, warm and dry Neurologic: PERRL, EOMI, accommodation nl, no face palsy, no dysarthria Psychiatric: A+Ox3, euthymic affect Results & Data ([facility]) Vital Signs (Past 12 Hours) Vital Signs Temp Pulse Resp BP Pulse Ox 11/11/20 07:45 36.8 C 87 16 124/68 95 11/11/20 02:56 36.7 C 72 20 134/84 96 11/11/20 00:16 36.4 C L 66 18 138/80 100 Laboratory Results Laboratory Results - last 24 hr 0111/10/20 11/10/20 20:13 20:13 20:13 WBC 7.65 RBC 4.35 Hgb 13.4 Hct 39.3 MCV 90.3 MCH 30.8 MCHC 34.1 RDW Std Deviation 43.1 RDW Coeff of [place] 13.0 Plt Count 204 MPV 9.6 Immature Gran % (Auto) 0.1 Neut % (Auto) 61.2 Lymph % (Auto) 30.2 [place] % (Auto) 6.9 Eos % (Auto) 1.3 Baso % (Auto) 0.3 Neut # (Auto) 4.68 Lymph # (Auto) 2.31 [place] # (Auto) 0.53 Eos # (Auto) 0.10 Baso # (Auto) 0.02 Immature Gran # (Auto) 0.01 PT 10.2 INR 1.0 APTT 25.4 PTT Ratio 0.9 Sodium 140 Potassium 3.9 Chloride 109 H Carbon Dioxide 25 Anion Gap 7.0 BUN 18 Creatinine 1.11 Est Cr Clr Drug Dosing 64.4 Est GFR ( Amer) 63.4 Est GFR (Non-Af Amer) 54.7 BUN/Creatinine Ratio 16.5 Glucose 116 H Estimat Average Glucose Hemoglobin A1c Calcium 9.1 Troponin I < 0.015 Triglycerides Cholesterol LDL Cholesterol, Calc VLDL Cholesterol, Calc HDL Cholesterol Cholesterol/HDL Ratio Lipase 161 SARS-CoV-2 Ag (Rapid) 11/10/20 11/10/20 11/10/20 20:13 21:40 Unknown WBC RBC Hgb Hct MCV MCH MCHC RDW Std Deviation RDW Coeff of [place] Plt Count MPV Immature Gran % (Auto) Neut % (Auto) Lymph % (Auto) [place] % (Auto) Eos % (Auto) Baso % (Auto) Neut # (Auto) Lymph # (Auto) [place] # (Auto) Eos # (Auto) Baso # (Auto) Immature Gran # (Auto) PT INR APTT PTT Ratio Sodium Potassium Chloride Carbon Dioxide Anion Gap BUN Creatinine Est Cr Clr Drug Dosing Est GFR ( Amer) Est GFR (Non-Af Amer) BUN/Creatinine Ratio Glucose Estimat Average Glucose Pending Hemoglobin A1c Pending Calcium Troponin I < 0.015 Triglycerides Cholesterol LDL Cholesterol, Calc VLDL Cholesterol, Calc HDL Cholesterol Cholesterol/HDL Ratio Lipase SARS-CoV-2 Ag (Rapid) Negative 11/11/20 11/11/20 11/11/20 06:42 06:42 06:42 WBC 6.66 RBC 4.23 Hgb 12.7 Hct 38.1 MCV 90.1 MCH 30.0 MCHC 33.3 RDW Std Deviation 43.0 RDW Coeff of [place] 13.2 Plt Count 191 MPV 9.5 Immature Gran % (Auto) 0.0 Neut % (Auto) 57.2 Lymph % (Auto) 32.7 [place] % (Auto) 8.1 Eos % (Auto) 1.7 Baso % (Auto) 0.3 Neut # (Auto) 3.81 Lymph # (Auto) 2.18 [place] # (Auto) 0.54 Eos # (Auto) 0.11 Baso # (Auto) 0.02 Immature Gran # (Auto) 0.00 PT INR APTT 25.8 PTT Ratio 0.9 Sodium 141 Potassium 3.8 Chloride 109 H Carbon Dioxide 25 Anion Gap 7.0 BUN 12 Creatinine 0.68 D Est Cr Clr Drug Dosing 104.0 Est GFR ( Amer) 111.8 Est GFR (Non-Af Amer) 96.4 BUN/Creatinine Ratio 18.1 Glucose 94 Estimat Average Glucose Hemoglobin A1c Calcium 8.8 Troponin I < 0.015 Triglycerides 217 H Cholesterol 303 H LDL Cholesterol, Calc 205 VLDL Cholesterol, Calc 43 HDL Cholesterol 55 Cholesterol/HDL Ratio 6 Lipase SARS-CoV-2 Ag (Rapid) (1) Chest pain Chest pain type: unspecified Qualified Code(s): R07.9 - Chest pain, unspecified
[2020-11-11] MEDS: METOPROLOL TARTRATE 25 MG TAB PO SCH ×2 (12:24→19:43)
--- NOTE | 2020-11-11 15:46 | Hospitalist Progress Note ---
Date of Service November 11, 2020 Assessment & Plan (1) Chest pain: Chest Pain R/O ACS Risk factors--dyslipidemia, former smoker, + family history of [place] Troponin:Negative EKG shows: T wave inversion in anterior leads CXR: No active disease in the chest. ECHO: EF 55 to 60%. Grade 1 diastolic dysfunction. Mild concentric LVH. Left ventricular wall motion is normal. Continue Aspirin, statin Started on metoprolol Appreciate cardiology input Plan for cardiac catheterization tomorrow N.p.o. after midnight Hyperlipidemia Recently started on Lipitor 20 mg daily Patient admits to being noncompliant with medication Continue Lipitor May need to increase the dose of Lipitor if coronary disease noted on cath Elevated blood pressure on presentation Likely situational Not on any antihypertensive medications Continue metoprolol Monitor GERD Continue PPI Hyperglycemia rule out DM HbA1c pending DVT Px: Natalienox SCDs Code Status Full code Admission and Anticipated Discharge Date Admission Date: November 10, 2020 Subjective Patient is seen and examined at bedside Complains of persistent pressure like chest pain but better Denies nausea, vomiting, dizziness, dyspnea Offers no other complaints Plan for cardiac catheterization tomorrow. Review of Systems Review of Systems: All systems reviewed & are unremarkable except as noted in HPI & below Physical Exam Physical Exam: Physical Exam: Vitals signs as noted above General Appearance:Moderately built and nourished, no apparent distress Head: normocephalic, Atraumatic Eyes: normal inspection, EOMI Neck: supple, Trachea midline Respiratory/Chest: Normal breath sounds, CTA Cardiovascular: S1, S2, No murmur Abdomen/GI:Soft, Non tender, Bowel sounds present Extremities/Musculoskelatal:normal inspection, 1+ B/L EL edema Neurologic/Psych:AAOX3, grossly no focal neurological deficits Skin: normal color, warm Results & Data Results & Data ([facility]) Vital Signs (Past 12 Hours) Vital Signs Temp Pulse Resp BP Pulse Ox 11/11/20 15:21 36.9 C 79 16 127/66 98 11/11/20 11:55 36.5 C 76 20 130/60 95 11/11/20 07:45 36.8 C 87 16 124/68 95 Laboratory Results Short CBC 11/10/20 11/11/20 Range/Units 20:13 06:42 WBC 7.65 6.66 (4.8-10.8) K/uL Hgb 13.4 12.7 (12.0-16.0) g/dL Hct 39.3 38.1 (37-47) % Plt Count 204 191 (130-400) K/uL BMP 11/10/20 11/11/20 20:13 06:42 Sodium 140 141 Potassium 3.9 3.8 Chloride 109 H 109 H Carbon Dioxide 25 25 BUN 18 12 Creatinine 1.11 0.68 D Glucose 116 H 94 Calcium 9.1 8.8 Cardiac Enzymes 11/10/20 11/10/20 11/11/20 Range/Units 20:13 21:40 06:42 Troponin I < 0.015 < 0.015 < 0.015 (0-0.045) ng/ml (1) Chest pain Chest pain type: unspecified Qualified Code(s): R07.9 - Chest pain, unspecified
[2020-11-11 19:42] LABS: Appearance Urine Clear (Clear); Bilirubin Urine Negative (Negative); Blood Urine Negative (Negative); Color Urine Yellow; Glucose Urine UA Negative (Negative); Ketones Urine Negative (Negative); Leukocyte Esterase Urine Negative (Negative); Nitrite Urine Negative (Negative); Protein Urine Negative (Negative); Specific Gravity Urine 1.007 (1.000-1.030); Urobilinogen Urine Negative (Negative)
[2020-11-11] MEDS ORDERED: lisinopril 2.5 MG TAB PO SCH (21:00)
--- NOTE | 2020-11-11 21:59 | Electrocardiogram Report ---
Test Reason : Blood Pressure : / mmHG Vent. Rate : 094 BPM Atrial Rate : 094 BPM P-R Int : 150 ms QRS Dur : 084 ms QT Int : 378 ms P-R-T Axes : 038 042 037 degrees QTc Int : 472 ms Normal sinus rhythm Nonspecific ST and T wave abnormality Prolonged QT Abnormal ECG No previous ECGs available Confirmed by Shreyas Campos ([id number]) on 11/11/2020 9:58:49 PM Referred By: REFERRED SELF Confirmed By:Shreyas Campos
--- NOTE | 2020-11-11 22:11 | Electrocardiogram Report ---
Test Reason : Blood Pressure : / mmHG Vent. Rate : 078 BPM Atrial Rate : 078 BPM P-R Int : 158 ms QRS Dur : 086 ms QT Int : 400 ms P-R-T Axes : 064 066 065 degrees QTc Int : 456 ms Normal sinus rhythm T wave abnormality, consider anterior ischemia Abnormal ECG When compared with ECG of 10-NOV-2020 20:11, (unconfirmed) No significant change was found Confirmed by Shreyas Campos ([id number]) on 11/11/2020 10:10:50 PM Referred By: REFERRED SELF Confirmed By:Shreyas Campos
[2020-11-12] MEDS ORDERED: SODIUM CHLORIDE 0.9% 1000ML 1,000 ML IV SCH
[2020-11-12 06:50] LABS: Albumin Level 3.4 gm/dl (3.4-5.0); BUN Creatinine Ratio 20.2 (10-20); Creatinine Clr Calc Pharmacy 87.1 ml/min; Est GFR (African American) 92.8; Est GFR (Non-African American) 80.1; Magnesium 2.2 mg/dl (1.8-2.4); Potassium 3.9 mmol/L (3.5-5.1)
[2020-11-12 06:53] LABS: Bilirubin,Total 0.4 mg/dl (0.2-1); Globulin 3.5 gm/dl (2.5-4.0); Total Protein 6.9 gm/dl (6.4-8.2)
[2020-11-12 07:15] LABS: Estimated Average Glucose 123 mg/dl; Hemoglobin A1C 5.9 % (4.5-5.6)
[2020-11-12] MEDS: ACETAMINOPHEN 325 MG TAB PO PRN ×2 (07:25→13:58)
[2020-11-12] MEDS ORDERED: niCARdipine HCL INJ 2.5 MG/ML 10 ML AMP ONE (09:07)
[2020-11-12] MEDS ORDERED: HEPARIN (PORCINE) 1000 UNIT/ML 10 ML (CATH LAB USE ONLY) ONE (09:07)
[2020-11-12] MEDS ORDERED: MIDAZOLAM HCL 1 MG/ML 2ML VIAL ONE (09:08)
[2020-11-12] MEDS ORDERED: fentaNYL citrate 100 MCG/2 ML VIAL ONE (09:08)
[2020-11-12] MEDS ORDERED: NITROGLYCERIN/D5W 100MCG/ML 20ML SYR ONE (09:09)
--- NOTE | 2020-11-12 09:20 | Pre Anesthesia Assessment ---
Date of Service November 12, 2020 Pre Sedation Assessment Vital Signs Temp Pulse Resp BP Pulse Ox 11/12/20 07:37 36.8 C 94 H 18 121/69 96 11/12/20 04:00 36.5 C 94 H 18 118/76 94 11/11/20 23:29 36.7 C 77 18 114/73 97 11/11/20 19:11 37 C 88 16 123/77 95 11/11/20 15:21 36.9 C 79 16 127/66 98 11/11/20 11:55 36.5 C 76 20 130/60 95 Cardiovascular RRR, no murmur, no edema Respiratory normal respiratory effort, lungs clear to auscultation Pre-Sedation Airway Assessment Smoking Status: Never smoker Mallampati Class: II NPO Status Date of Last Intake of Fluids: 11/11/20 Date of Last Intake of Solid Food: 11/11/20 Procedure Planning Contraindications for Sedation: none Current Medications Reviewed: Yes Notes The planned sedation has been discussed with the patient. Informed Consent was obtained. I have identified the patient, determined the appropriateness of sedation and have assessed the patient immediately prior to the procedure. All medicine(s) and interventions are by my order.
--- NOTE | 2020-11-12 10:08 | Cardiac Catheterization ---
Cardiac Cath Procedure Brief Procedure Date November 12, 2020 Pre-Procedure Diagnosis Pre-Procedure Diagnosis: Angina AUC Score AUC Score: 8 Post-Procedure Diagnosis Post-Procedure Diagnosis: Normal Coronary Arteries and Normal LV Systolic Function Procedure(s) Performed Procedure(s) Performed: Coronary Angiography, Left Heart Cath and LV Angiography Label Printer Filiberto Driscoll MD Petrography Teacher(s) Des Dorman. Estimated Blood Loss Estimated Blood Loss: <15cc Medication(s) Medication(s): Fentanyl (12.5 mcg IV), Heparin (5000 units IV), Lidocaine 1% (Local infiltration access site), Nicardipine (250 mcg intra-arterial after arterial sheath insertion and prior to removal) and Versed (1 mg IV) Preliminary Findings Right dominant coronary anatomy Essentially normal coronary arteries with only minimal luminal irregularities Normal systolic ejection fraction EF greater than 65% Recommendations Recommendations: Medical Therapy and/or Counseling Specimens Specimens: None Fluids (cc crystalloids) Fluids (cc crystalloids): 75 Anesthesia Start time: 09 40, stop time: 10 00 Procedural Complication(s) None Disposition PCU
--- NOTE | 2020-11-12 10:14 | Cardiac Catheterization ---
Cardiac Cath Procedure Full Procedure Date November 12, 2020 Pre-Procedure Diagnosis Pre-Procedure Diagnosis: Angina AUC Score AUC Score: 8 Post-Procedure Diagnosis Post-Procedure Diagnosis: Normal Coronary Arteries and Normal LV Systolic Function Procedure(s) Performed Procedure(s) Performed: Coronary Angiography, Left Heart Cath and LV Angiography Sr. Pricing Analyst Filiberto Driscoll MD Aquatic Scientist(s) Des Dorman. Estimated Blood Loss Estimated Blood Loss: <15cc Medication(s) Medication(s): Fentanyl (12.5 mcg IV), Heparin (5000 units IV), Lidocaine 1% (Local infiltration access site), Nicardipine (250 mcg intra-arterial after arterial sheath insertion and prior to removal) and Versed (1 mg IV) Summary of Findings Right dominant coronary anatomy Essentially normal coronary arteries with only minimal luminal irregularities Normal systolic ejection fraction EF greater than 65% Hemodynamics Rest Ao:: 126/75/97 Final Ao: 127/79/101 LV: 124/0/6 Recommendations Recommendations: Medical Therapy and/or Counseling Specimens Specimens: None Radiation Exposure (mGy) 543 Contrast (mls) 130 Fluids (cc crystalloids) Fluids (cc crystalloids): 75 Anesthesia Start time: 09 40, stop time: 10 00 Procedural Complication(s) None Disposition PCU I attest to the content of the Intraoperative Record and any orders documented therein. Any exceptions are noted below. ACC Data: Sql Ssrs Ssis Developer Cardiac Status Clinical evaluation leading to the procedure Patient is a 60-year-old female with strong family history of premature coronary disease, marked hyperlipidemia admitted with rest chest discomfort with associated radiation to the jaw and diaphoresis CAD Presenation: Unstable angina Anginal Classification: CCS IV Heart Failure: No Cardiogenic Shock within 24 Hours: No Cardiac Arrest within 24 Hours: No Imaging Studies Past 6 Months: Yes Stress Studies Past 6 Months: No Standard Exercise Test: No Stress Echocardiogram: No Cardiac CTA: No Coronary Anatomy Dominant: Right Left Main (% Stenosis): Mid and Normal LAD (% Stenosis): Mid (Type III vessel, luminal irregularities mid vessel less than 20% after large diagonal) D1 (% Stenosis): Normal (Large multibranching vessel) Circumflex (% Stenosis): Normal OM1 (% Stenosis): Normal (Large bifurcating vessel) L PL1 (% Stenosis): Normal RCA (% Stenosis): Normal (Moderately large vessel with upward takeoff) R PDA (% Stenosis): Normal R PL1 (% Stenosis): Normal Left Ventricular Angiography EF (%): Greater than 65% Mitral Regurgitation: None Diagnostic Physicians Name: Filiberto Driscoll MD Status: Urgent Closure Device Percutaneous Entry Location: Radial Closure Device: Radial Band Recommendations: Medical Therapy and/or Counseling
[2020-11-12] MEDS: ASPIRIN 81 MG ECTAB PO SCH (11:00)
[2020-11-12] MEDS: ATORVASTATIN 20 MG TAB PO SCH (11:00)
[2020-11-12] MEDS: PANTOprazole 40 MG TAB PO SCH (11:01)
[2020-11-12] MEDS: METOPROLOL TARTRATE 25 MG TAB PO SCH (11:01)
--- NOTE | 2020-11-12 11:45 | Cardiology Progress Note ---
Date of Service November 12, 2020 Assessment & Plan (1) Chest pain: Patient is a 60-year-old female with cardiovascular risk factors of marked hyperlipidemia and family history admitted after episode of chest pain and diaphoresis at rest. Patient had recurrence of diaphoresis this morning. EKG reveals T wave inversions anterior precordial leads. No elevation in troponin or wall motion or normality's on echocardiogram. Concerning symptom pattern at rest. Cardiac catheterization today demonstrates no obstructive coronary disease and normal to hyperdynamic LV function. Recommendations patient may be discharged later today from cardiac standpoint she should be maintained on metoprolol 25 mg twice per day for heart rate and blood pressure control. Will intensify lipid-lowering therapy as below (2) HLD (hyperlipidemia): Discontinue atorvastatin, begin rosuvastatin 40 mg p.o. daily Admission and Anticipated Discharge Date Admission Date: November 11, 2020 Subjective Patient seen and examined pre and post cardiac catheterization. Doing well. No chest pain or discomfort. Cardiac catheterization this morning demonstrated normal coronaries other than mild luminal irregularities. LV systolic function normal to hyperdynamic Blood pressures are controlled Physical Exam Constitutional: WD/WN, vitals as above Eyes: PERRL, conjunctivae normal, anicteric sclerae ENMT: Mallampati Class: II Neck: trachea midline, no thyromegaly Respiratory: normal respiratory effort, lungs clear to auscultation Cardiovascular: RRR, no murmur, no edema Rate/Rhythm: regular rate and regular rhythm Heart Sounds: normal S1 and normal S2; no gallop and no murmur Palpation: normal PMI Vessels: normal carotid upstroke and radial pulses present (Radial access site healing well); no JVD and no carotid bruit Extremities: no edema Gastrointestinal (Abdomen): normal bowel sounds, soft, nontender, no hepatosplenomegaly Musculoskeletal: no cyanosis or clubbing, extremities motor strength 5/5 Skin: no rashes, warm and dry Neurologic: PERRL, EOMI, accommodation nl, no face palsy, no dysarthria Psychiatric: A+Ox3, euthymic affect Results & Data ([facility]) Vital Signs (Past 12 Hours) Vital Signs Temp Pulse Pulse Resp BP BP Pulse Ox 11/12/20 11:18 36.6 C 70 18 121/69 95 11/12/20 11:03 36.6 C 70 18 120/78 96 11/12/20 10:48 36.6 C 73 18 127/75 95 11/12/20 10:33 36.6 C 74 16 121/78 95 11/12/20 10:16 67 11/12/20 10:11 76 17 130/66 98 11/12/20 10:02 78 17 135/67 98 11/12/20 07:37 36.8 C 94 H 18 121/69 96 11/12/20 04:00 36.5 C 94 H 18 118/76 94 Laboratory Results Laboratory Results - last 24 hr 11/10/20 11/10/20 11/11/20 20:13 21:40 06:42 Sodium Potassium Chloride Carbon Dioxide Anion Gap BUN Creatinine Est Cr Clr Drug Dosing Est GFR ( Amer) Est GFR (Non-Af Amer) BUN/Creatinine Ratio Glucose Estimat Average Glucose 123 Hemoglobin A1c 5.9 H Calcium Magnesium Total Bilirubin AST ALT Alkaline Phosphatase Troponin I < 0.015 Total Protein Albumin Globulin Albumin/Globulin Ratio TSH 3.100 Urine Color Urine Appearance Urine pH Ur Specific [place] Urine Protein Urine Glucose (UA) Urine Ketones Urine Blood Urine Nitrite Urine Bilirubin Urine Urobilinogen Ur Leukocyte Esterase 11/11/20 11/12/20 19:30 05:31 Sodium 140 Potassium 3.9 Chloride 106 Carbon Dioxide 29 Anion Gap 5.0 BUN 16 Creatinine 0.81 Est Cr Clr Drug Dosing 87.1 Est GFR ( Amer) 92.8 Est GFR (Non-Af Amer) 80.1 BUN/Creatinine Ratio 20.2 H Glucose 90 Estimat Average Glucose Hemoglobin A1c Calcium 9.0 Magnesium 2.2 Total Bilirubin 0.4 AST 14 L ALT 23 Alkaline Phosphatase 89 Troponin I Total Protein 6.9 Albumin 3.4 Globulin 3.5 Albumin/Globulin Ratio 1.0 TSH Urine Color Yellow Urine Appearance Clear Urine pH 7.0 Ur Specific [place] 1.007 Urine Protein Negative Urine Glucose (UA) Negative Urine Ketones Negative Urine Blood Negative Urine Nitrite Negative Urine Bilirubin Negative Urine Urobilinogen Negative Ur Leukocyte Esterase Negative (1) Chest pain Chest pain type: unspecified Qualified Code(s): R07.9 - Chest pain, unspecified
--- NOTE | 2020-11-12 13:33 | Hospitalist Progress Note ---
Date of Service November 12, 2020 Assessment & Plan (1) Chest pain: Chest Pain R/O ACS Risk factors--dyslipidemia, former smoker, + family history of MD Troponin:Negative EKG shows: T wave inversion in anterior leads CXR: No active disease in the chest. ECHO: EF 55 to 60%. Grade 1 diastolic dysfunction. Mild concentric LVH. Left ventricular wall motion is normal. S/P Cardiac Cath:Right dominant coronary anatomy. Essentially normal coronary arteries with only minimal luminal irregularities. Normal systolic ejection fraction EF greater than 65% Continue Aspirin, statin, metoprolol Appreciate cardiology input Plan to discharge home today Hyperlipidemia Discontinue Lipitor 20mg Started on Rosuvastatin 40mg daily as per Cardiology Advised to be compliant with medications Elevated blood pressure on presentation Likely situational Not on any antihypertensive medications Continue metoprolol Monitor GERD Continue PPI Hyperglycemia rule out DM HbA1c pending DVT Px: Lovenox SCDs Code Status Full code Disposition Plan to discharge home today Admission and Anticipated Discharge Date Admission Date: November 11, 2020 Subjective Patient is seen and examined at bedside Had Cardiac Cath earlier today Chest pain/Pressure is much improved Offers no other complaints Discussed with Cardiology today Denies dyspnea, nausea, vomiting, dizziness, dyspnea Review of Systems Review of Systems: All systems reviewed & are unremarkable except as noted in HPI & below Physical Exam Physical Exam: Physical Exam: Vitals signs as noted above General Appearance:Moderately built and nourished, no apparent distress Head: normocephalic, Atraumatic Eyes: normal inspection, EOMI Neck: supple, Trachea midline Respiratory/Chest: Normal breath sounds, CTA Cardiovascular: S1, S2, No murmur Abdomen/GI:Soft, Non tender, Bowel sounds present Extremities/Musculoskelatal:normal inspection, 1+ B/L EL edema Neurologic/Psych:AAOX3, grossly no focal neurological deficits Skin: normal color, warm Results & Data Results & Data ([facility]) Vital Signs (Past 12 Hours) Vital Signs Temp Pulse Pulse Resp BP BP Pulse Ox 11/12/20 12:33 36.6 C 71 18 139/66 96 11/12/20 12:11 79 11/12/20 12:03 36.6 C 75 18 126/81 95 11/12/20 11:33 36.6 C 68 18 128/80 94 11/12/20 11:18 36.6 C 70 18 121/69 95 11/12/20 11:03 36.6 C 70 18 120/78 96 11/12/20 10:48 36.6 C 73 18 127/75 95 11/12/20 10:33 36.6 C 74 16 121/78 95 11/12/20 10:16 67 11/12/20 10:11 76 17 130/66 98 11/12/20 10:02 78 17 135/67 98 11/12/20 07:37 36.8 C 94 H 18 121/69 96 11/12/20 04:00 36.5 C 94 H 18 118/76 94 Laboratory Results [facility] 11/12/20 05:31 Sodium 140 Potassium 3.9 Chloride 106 Carbon Dioxide 29 BUN 16 Creatinine 0.81 Glucose 90 Calcium 9.0 Cardiac Enzymes 11/10/20 Range/Units 21:40 Troponin I < 0.015 (0-0.045) ng/ml Liver Function 11/12/20 Range/Units 05:31 Total Bilirubin 0.4 (0.2-1) mg/dl AST 14 L (15-37) U/L ALT 23 (12-78) U/L Alkaline Phosphatase 89 (45-117) U/L Albumin 3.4 (3.4-5.0) gm/dl Urine 11/11/20 Range/Units 19:30 Urine Color Yellow Urine Appearance Clear (Clear) Urine pH 7.0 (4.5-7.5) Ur Specific [place] 1.007 (1.000-1.030) Urine Protein Negative (Negative) Urine Glucose (UA) Negative (Negative) (1) Chest pain Chest pain type: unspecified Qualified Code(s): R07.9 - Chest pain, unspecified
--- NOTE | 2020-11-12 14:08 | Discharge Summary ---
Date of Service November 12, 2020 Admission HPI Per Admitting Provider History obtained from patient and records. Medical history significant for hyperlipidemia, GERD. 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 No cough symptoms. Nonpleuritic. No prior episodes. No unusual stress at home or exertion. SBP noted to be 170s which according to patient is unusual for her. Chest discomfort relieved by aspirin and nitroglycerin administration by EMS. Achy headache symptoms post nitro administration. Patient currently comfortable at the ER. Medical History as above Surgical History : Partial hysterectomy, shoulder surgery Family History : Heart disease Personal/Social history : Non-smoker, occasional EtOH intake, Dollar relief manager Admission Exam Per Admitting Provider Physical Exam Physical Exam: GENERAL: Comfortable, pleasant, obese, slightly anxious, no respiratory distress SKIN: Normal color, warm HEENT: [place] palpebral conjunctivae, no ptosis, dry buccal mucosa NECK : Supple, short neck, no tenderness CHEST : CTA, anterior chest wall tenderness HEART : RRR, no obvious murmurs ABDOMEN: Some distention, nontender EXTREMITIES : No LE swelling/tenderness, no other conspicuous deformities noted NEUROLOGIC : Coherent, no facial asymmetry, no other gross focality Principal Diagnosis Chest Pain Hyperlipidemia Discharge Data Allergies Allergy/AdvReac Type Severity Reaction Status Date / Time No Known Allergies Allergy Unverified 11/10/20 20:22 Consultations 11/10/20 21:18 ED Decision to Admit Stat 11/10/20 22:57 Consult Cardiology Routine Procedures Performed Operation Date: 11/12/20 08:30 Actual Procedures p Cath, Left with Cors and Vent - Filiberto Driscoll MD s Cineradiography w/Routine Exam - Filiberto Driscoll MD CXR: No active disease in the chest. ECHO: EF 55 to 60%. Grade 1 diastolic dysfunction. Mild concentric LVH. Left ventricular wall motion is normal. Cardiac catheterization Summary of Findings Right dominant coronary anatomy Essentially normal coronary arteries with only minimal luminal irregularities Normal systolic ejection fraction EF greater than 65% Ordered Studies 11/12/20 06:35 CL Cath Imgs for PACS use only Routine Hospital Course (1) Chest pain: Chest Pain R/O ACS Risk factors--dyslipidemia, former smoker, + family history of [place] Troponin:Negative EKG shows: T wave inversion in anterior leads CXR: No active disease in the chest. ECHO: EF 55 to 60%. Grade 1 diastolic dysfunction. Mild concentric LVH. Left ventricular wall motion is normal. S/P Cardiac Cath:Right dominant coronary anatomy. Essentially normal coronary arteries with only minimal luminal irregularities. Normal systolic ejection fraction EF greater than 65% Continue Aspirin, statin, metoprolol Appreciate cardiology input Plan to discharge home today Hyperlipidemia Discontinue Lipitor 20mg Started on Rosuvastatin 40mg daily as per Cardiology Advised to be compliant with medications Elevated blood pressure on presentation Likely situational Not on any antihypertensive medications Continue metoprolol Monitor GERD Continue PPI Hyperglycemia rule out DM HbA1c pending DVT Px: [place] SCDs Code Status Full code Disposition Plan to discharge home today Total Time Total Time Spent Total Time Spent (In Minutes): 44 minutes Total Time Includes: Examination of the Patient, Discharge Planning, Medication Reconciliation, Communication With Other Providers and Other Discharge Plan Discharge Items Patient Disposition: Home - Self-Care Reason For Visit: CP Discharge Diagnosis: Chest Pain Hyperlipidemia Activity: Per Instructions section Exercise/Sports: Gradually increase as tolerated Driving/Machine Use: Resume 1 day after discharge Non-emergency contact: Primary Care Provider Call non-emergency contact if: you have any medication questions, your symptoms worsen, your pain is not controlled, your pain is worsening, your pain is unusual for you, your pain is concerning for you and you have a fever Follow-up/Referrals: Yuly Rm DO [Primary Care Provider] - Diet: Heart Healthy Addtl Attending Provider Instructions: Follow up with on Nov 16, 2020 at 1:40pm as scheduled Follow up with your Youth Worker as needed Take medications regularly as advised. Seek immediate medical attention if your symptoms reoccur or worsen ACTIVITY RECOMMENDATIONS: Excess manipulation of the wrist should be avoided for the next 24-48 hours. * No lifting over 2 pounds (approximately a 1/2 gallon of milk) with the utilized arm for 24 hours. * No strenuous activity such as bowling or tennis for 3 days. * Keep the site of the procedure covered with a bandage for 24 hours. *You may shower the day after the procedure. Do not take a tub bath or submerge the puncture site in water for the next 3 days. *Do not operate any motorized equipment for 3 days. SPECIAL CARE INSTRUCTIONS: The site may be slightly bruised and sore following your procedure. Should any of the following occur, contact the Dr. who performed your procedure. 1. Redness/inflammation, swelling, chills, or fever, or colored drainage at procedure site within 3-7 days after your procedure. 2. Coldness, discoloration, ongoing numbness, severe pain, or swelling. Expect mild tingling of hand and tenderness at the puncture site for up to three days. If this persists beyond three days, or other symptoms develop, notify the Dr. who performed your procedure. BLEEDING: If the procedure site on your wrist begins to bleed, do not panic 1. Place 1 or 2 fingers firmly just slightly above the insertion site to stop the bleeding. You may be able to feel your pulse as you hold pressure. 2. Lift your finger after 5 minutes to see if the bleeding has stopped. 3. Once the bleeding has stopped, gently wipe the wrist area clean with a bandage. * If the bleeding from your wrist does not stop after 10 minutes, or if there is a large amount of bleeding or spurting, call 911 (do not drive yourself to the hospital). SKIN IRRITATION: * You may experience some redness and/or swelling in the area where radiation was administered. If any skin irritation occurs, please contact your family physician. FOLLOW UP VISIT: Keep any scheduled doctor appointments. Pending Studies at Discharge: No Stand-Alone Forms: My [facility], Work/School Release (Inpt), Smoking Cessation Medications and DC Order Prescriptions: New rosuvastatin [Crestor] 20 mg Tablet 40 mg PO QAM Qty: 30 RF: 1 metoprolol tartrate 25 mg Tablet 25 mg PO BID Qty: 60 RF: 1 Continued omeprazole 40 mg capsule,delayed release(DR/EC) 40 mg PO DAILY RF: 0 Discontinued atorvastatin [Lipitor] 20 mg tablet 20 mg PO DAILY RF: 0 aspirin [Aspir-Low] 81 mg Tablet,Delayed Release (Dr/Ec) 324 mg PO .TODAY RF: 0 aspirin [Aspir-81] 81 mg Tablet,Delayed Release (Dr/Ec) 162 mg PO .TODAY RF: 0 Discharge Orders: Discharge Order (Routine); Ordered 11/12/20 Ordered By: Son Awad Admission Data Admit Date/Time: 11/11/20 17:41 Attending Provider: Son Awad Admit Provider: Cilfford Timmons Primary Care Provider: Yuly Rm Other Providers: Clifford Timmons ; [place] Snider ; Haris Umaña ; Filiberto Driscoll ; Edwar Eng ; Harshad Dean ; Margarito Gavin ; Tena Azul ; Cheri Vo ; Anmol Cha Other Interventions: Discharge Summary Assessment (RN) Last Done: 11/12/20 14:46
[2020-11-13] MEDS ORDERED: ROSUVASTATIN CALCIUM 20 MG TAB PO SCH (09:00)
== END 2020-11-12 15:36 | disposition home or self-care (01) | DRG 287 ==
LOC: 2S 20:05 → ED 20:05 → 2S 22:35